=== PATIENT | female | born 1975 ===

== ENCOUNTER 2020-04-17 21:12 | Emergency (ER) | payer SELFPAY ==
[~2020-04-17] VITALS: Ht 170.2 cm; Wt 135.0 kg
[2020-04-17] MEDS ORDERED: CeFAZolin 1 GM/DEXTROSE 50 ML IV ONE (21:30)
[2020-04-17] MEDS ORDERED: FentaNYL CITRATE PF 100 MCG/2 ML VIAL IVP ONE (21:30)
[2020-04-17] MEDS ORDERED: PERTUSS(ACELL),DIPH,TET VAC/PF 0.5 ML VIAL IM ONE (21:30)
[2020-04-17] MEDS ORDERED: RINGERS SOLUTION,LACTATED 1,000 ML IV ONE (21:30)
[2020-04-17 21:38] VITALS: BP 152/112
== END 2020-04-17 22:07 ==
LOC: EMS 21:12
DX: S01.83XA Puncture wound without foreign body of other part of head, initial encounter (principal); S31.130A Puncture wound of abdominal wall without foreign body, right upper quadrant without penetration into peritoneal cavity, initial encounter; W25.XXXA Contact with sharp glass, initial encounter; Y93.89 Activity, other specified; Y92.89 Other specified places as the place of occurrence of the external cause; Y99.8 Other external cause status
CPT/HCPCS: 71045; 90471; 90715; 96374; 99285; J0690; J3010; J7120; 96361